=== PATIENT | female | born 2000 | race Two or more races ===

== ENCOUNTER 2021-01-31 16:42 | Emergency (ER) | payer OTHER ==
[~2021-01-31] VITALS: Ht 157.5 cm; Wt 61.2 kg
[2021-01-31 17:00] VITALS: BP 140/71
--- NOTE | 2021-01-31 17:10 | NUR ---
LACERATION TO DORSUM OF LEFT FOOT,GLASS FELL ON IT AFTER MIDNIGHT AT HOME. RATES PAIN 2/10. WILL CONTINUE TO MONITOR THE PATIENT.
[2021-01-31] MEDS ORDERED: LIDOCAINE 1% INJ 50 ML MDV IJ ONE (17:30)
[2021-01-31] MEDS ORDERED: BACITRACIN ZINC OINT PACKET 1 EA PACKET TP ONE (17:30)
--- NOTE | 2021-01-31 18:24 | NUR ---
Patient discharged to home in stable condition. Written and verbal after care instructions given. Patient verbalizes understanding of instruction.
== END 2021-01-31 18:25 | disposition home or self-care (01) ==
LOC: EDSEX → ER 16:42
DX: S91.312A Laceration without foreign body, left foot, initial encounter (principal); W25.XXXA Contact with sharp glass, initial encounter; Y93.89 Activity, other specified; Y92.098 Other place in other non-institutional residence as the place of occurrence of the external cause; Y99.8 Other external cause status
CPT/HCPCS: 12002; 99282; A6403

== ENCOUNTER 2021-02-03 04:17 | Emergency (ER) | payer OTHER ==
--- NOTE | 2021-02-03 04:25 | NUR ---
called to triage, no answer
--- NOTE | 2021-02-03 04:33 | NUR ---
CALLED FOR TRIAGE, NO ANSWER.
--- NOTE | 2021-02-03 04:39 | NUR ---
CALLED TO TRIAGE, NO ANSWER
== END 2021-02-03 05:03 | disposition home or self-care (01) ==
LOC: EDSEX 04:18 → ER 04:18
DX: Z53.21 Procedure and treatment not carried out due to patient leaving prior to being seen by health care provider (principal)

== ENCOUNTER 2021-02-09 11:47 | Emergency (ER) | payer OTHER ==
[~2021-02-09] VITALS: Ht 157.5 cm; Wt 59.9 kg
[2021-02-09 11:58] VITALS: BP 132/81
--- NOTE | 2021-02-09 12:22 | NUR ---
Patient discharged to home in stable condition, WOUND CARE GIVEN. Written and verbal after care instructions given. Patient verbalizes understanding of instruction. PT ambulatory with a steady gait
== END 2021-02-09 13:02 | disposition home or self-care (01) ==
LOC: ER 11:56
DX: S91.312D Laceration without foreign body, left foot, subsequent encounter (principal); X58.XXXD Exposure to other specified factors, subsequent encounter

== ENCOUNTER 2021-10-22 13:00 | Emergency (ER) | payer OTHER ==
[~2021-10-22] VITALS: Ht 157.5 cm; Wt 70.3 kg
[2021-10-22 13:08] VITALS: BP 126/69
--- NOTE | 2021-10-22 13:10 | NUR ---
THE PATIENT IS BIBS FOR C/O LEFT WRIST PAIN 11/11 ,FELL OFF AN ELECTRIC SCOOTER LAST NIGHT. WILL CONTINUE TO MONITOR THE PATIENT.
[2021-10-22] MEDS ORDERED: IBUP-1955 PO (14:20)
--- NOTE | 2021-10-22 14:29 | NUR ---
Patient discharged to home in stable condition. Written and verbal after care instructions given. Patient verbalizes understanding of instruction.
[2021-10-22] MEDS ORDERED: IBUPROFEN 600 MG TABLET ONE (14:36)
[2021-10-22] MEDS ORDERED: TDAP [DIPH/PERTUSSIS/TET] 0.5 ML VIAL IM ONE (14:36)
[2021-10-22] MEDS: TDAP [DIPH/PERTUSSIS/TET] 0.5 ML VIAL IM ONE (14:40)
[2021-10-22] MEDS: IBUPROFEN 600 MG TABLET PO ONE (14:41)
== END 2021-10-22 14:29 | disposition home or self-care (01) ==
LOC: ER 13:05
DX: S80.212A Abrasion, left knee, initial encounter (principal); M25.532 Pain in left wrist; V00.841A Fall from standing electric scooter, initial encounter; Y93.89 Activity, other specified; Y92.89 Other specified places as the place of occurrence of the external cause; Y99.8 Other external cause status
CPT/HCPCS: 73090-TC; 73110; 73564-TC; 90715

== ENCOUNTER 2023-05-08 13:00 | Emergency (ER) | payer OTHER ==
[~2023-05-08] VITALS: Ht 157.5 cm; Wt 59.4 kg
[~2023-05-08 13:00] MED LIST: IBUP-1955 PO
[2023-05-08 14:04] LABS: BASOPHILS % (AUTO) 0.5 % (0.0-2.0); EOSINOPHILS # (AUTO) 0.1 K/uL (0.0-0.7); HEMATOCRIT 44 % (33-45); HEMOGLOBIN 15.1 g/dL (11.5-14.8); LYMPHOCYTES # (AUTO) 2.3 K/uL (0.8-4.8); LYMPHOCYTES % (AUTO) 25.1 % (20.0-44.0); MEAN CORPUSCULAR HEMOGLOBIN 33 PG (26.0-33.0); MEAN CORPUSCULAR HGB CONC 35 g/dl (31.0-36.0); MEAN CORPUSCULAR VOLUME 95 fL (82-100); MONOCYTES # (AUTO) 0.5 K/uL (0.1-1.30); MONOCYTES % (AUTO) 5.6 % (2.0-12.0); NEUTROPHILS # (AUTO) 6.1 K/uL (1.8-8.9); NEUTROPHILS % (AUTO) 67.8 % (43.0-81.0); PLATELET COUNT (AUTO) 243 K/uL (150-450); RED BLOOD CELL COUNT(AUTO) 4.63 MIL/uL (4.0-5.2); RED CELL DISTRIBUTION WIDTH 13.3 % (11.5-15.0)
[2023-05-08 14:23] LABS: BILIRUBIN,DIRECT 0.1 mg/dL (0.0-0.2); BILIRUBIN,TOTAL 0.4 mg/dL (0.2-1.0); CALCIUM, SERUM 8.9 mg/dL (8.5-10.1); CREATININE 0.9 mg/dL (0.6-1.3); POTASSIUM 4.6 mmol/L (3.5-5.1); TOTAL PROTEIN, SERUM 8.1 g/dL (6.4-8.2)
[2023-05-08 14:24] LABS: SALICYLATE 0.6 mg/dL (2.8-20.0)
[2023-05-08 17:37] LABS: APPEARANCE,URINE SLIGHTLY CLOUDY (CLEAR); BILIRUBIN,URINE NEGATIVE (NEGATIVE); BLOOD, URINE NEGATIVE Ery/uL (NEGATIVE); COLOR,URINE YELLOW (YELLOW); KETONES,URINE NEGATIVE (NEGATIVE); LEUKOCYTE ESTERASE ,URINE TRACE (NEGATIVE); NITRITE, URINE NEGATIVE (NEGATIVE); PH,URINE 7.5 (5.0-8.0); PROTEIN,URINE NEGATIVE (NEGATIVE); UGLUCOSE NEGATIVE (NEGATIVE)
[2023-05-08 17:50] LABS: AMPHETAMINE, URINE NEGATIVE (NEGATIVE); BENZODIAZEPINE, URINE NEGATIVE (NEGATIVE); COCCAINE, URINE NEGATIVE (NEGATIVE); OPIATE, URINE NEGATIVE (NEGATIVE); PHENCYCLIDINE SCREEN,URINE NEGATIVE (NEGATIVE)
[2023-05-08 17:55] LABS: BARBITURATE, URINE POSITIVE (NEGATIVE)
[2023-05-08 17:56] LABS: CANNABINOID, URINE POSITIVE (NEGATIVE)
[2023-05-08 18:10] LABS: PREGNANCY TEST URINE QUAL NEGATIVE (NEGATIVE)
[2023-05-08 18:45] VITALS: BP 122/62; TEMP 98.1; O2SAT 100
[2023-05-08 19:46] LABS: ADD URINE CULTURE NO; BACTERIA,URINE RARE /HPF (None Seen); RBC,URINE 0-2 /HPF (0-2)
== END 2023-05-08 18:45 | disposition home or self-care (01) ==
LOC: ER 13:21
DX: F32.A Depression, unspecified (principal); R10.2 Pelvic and perineal pain; Z79.899 Other long term (current) drug therapy; Z20.822 Contact with and (suspected) exposure to COVID-19
CPT/HCPCS: 36415; 80048-TC; 80076-TC; 81001; 84702-TC; 84703-TC; 85025-TC; G0480

== ENCOUNTER 2023-05-30 11:45 | Emergency (ER) | payer OTHER ==
[~2023-05-30] VITALS: Ht 157.5 cm; Wt 60.3 kg
[2023-05-30] MEDS ORDERED: ONDANSETRON HCL/PF 4 MG/2 ML VIAL ONE (12:27)
[2023-05-30 12:31] LABS: BASOPHILS % (AUTO) 0.3 % (0.0-2.0); EOSINOPHILS % (AUTO) 0.2 % (0.0-6.0); HEMATOCRIT 46 % (33-45); HEMOGLOBIN 15.7 g/dL (11.5-14.8); LYMPHOCYTES # (AUTO) 1.3 K/uL (0.8-4.8); LYMPHOCYTES % (AUTO) 9.3 % (20.0-44.0); MEAN CORPUSCULAR HEMOGLOBIN 33 PG (26.0-33.0); MEAN CORPUSCULAR HGB CONC 34 g/dl (31.0-36.0); MEAN CORPUSCULAR VOLUME 95 fL (82-100); MONOCYTES # (AUTO) 0.6 K/uL (0.1-1.30); MONOCYTES % (AUTO) 4.3 % (2.0-12.0); NEUTROPHILS # (AUTO) 11.7 K/uL (1.8-8.9); NEUTROPHILS % (AUTO) 85.9 % (43.0-81.0); PLATELET COUNT (AUTO) 293 K/uL (150-450); RED BLOOD CELL COUNT(AUTO) 4.79 MIL/uL (4.0-5.2); RED CELL DISTRIBUTION WIDTH 13.5 % (11.5-15.0); WHITE BLOOD COUNT (AUTO) 13.7 K/uL (4.3-11.0)
[2023-05-30] MEDS: IV NS 0.9% 1,000 ML BAG IV ONE (12:52)
[2023-05-30] MEDS: ONDANSETRON HCL/PF 4 MG/2 ML VIAL IVP ONE (12:54)
[2023-05-30] MEDS ORDERED: ONDA4TAB5 PO (13:01)
[2023-05-30 13:04] LABS: BILIRUBIN,DIRECT 0.3 mg/dL (0.0-0.2); BILIRUBIN,TOTAL 1.5 mg/dL (0.2-1.0); CALCIUM, SERUM 9.4 mg/dL (8.5-10.1); CREATININE 0.9 mg/dL (0.6-1.3); POTASSIUM 3.8 mmol/L (3.5-5.1); TOTAL PROTEIN, SERUM 7.5 g/dL (6.4-8.2)
[2023-05-30 13:25] LABS: APPEARANCE,URINE SLIGHTLY CLOUDY (CLEAR); BILIRUBIN,URINE 1+ (NEGATIVE); BLOOD, URINE NEGATIVE Ery/uL (NEGATIVE); COLOR,URINE DARK YELLOW (YELLOW); KETONES,URINE NEGATIVE (NEGATIVE); LEUKOCYTE ESTERASE ,URINE NEGATIVE (NEGATIVE); NITRITE, URINE NEGATIVE (NEGATIVE); PROTEIN,URINE 1+ mg/dl (NEGATIVE); UGLUCOSE NEGATIVE (NEGATIVE)
[2023-05-30 13:28] LABS: PREGNANCY TEST URINE QUAL NEGATIVE (NEGATIVE)
[2023-05-30 13:47] LABS: AMPHETAMINE, URINE NEGATIVE (NEGATIVE); BARBITURATE, URINE NEGATIVE (NEGATIVE); BENZODIAZEPINE, URINE NEGATIVE (NEGATIVE); COCCAINE, URINE NEGATIVE (NEGATIVE); OPIATE, URINE NEGATIVE (NEGATIVE); PHENCYCLIDINE SCREEN,URINE NEGATIVE (NEGATIVE)
[2023-05-30 13:50] LABS: CANNABINOID, URINE POSITIVE (NEGATIVE)
[2023-05-30 13:56] LABS: ADD URINE CULTURE NO; BACTERIA,URINE Few /HPF (None Seen); RBC,URINE 0-2 /HPF (0-2); SQUAMOUS EPITHELIAL CELL,UR Many /HPF (None Seen)
[2023-05-30 14:51] VITALS: BP 148/96; TEMP 98.3; O2SAT 98
== END 2023-05-30 14:52 | disposition home or self-care (01) ==
LOC: ER 11:47
DX: F10.10 Alcohol abuse, uncomplicated (principal); R10.2 Pelvic and perineal pain; Z79.899 Other long term (current) drug therapy; Y90.0 Blood alcohol level of less than 20 mg/100 ml
CPT/HCPCS: 99285; 96374; 96361; 85025; 80048; 83690; 80076; 84703; 81001; 36415; 80320; 80307; J2405; J7030; G0480